=== PATIENT | male | born 1985 | race American Indian/Alaskan Native ===

== ENCOUNTER 2023-06-14 21:59 | Emergency (ER) | payer MEDICAID, SELFPAY ==
--- NOTE | 2023-06-14 22:00 | DI.RAD.S_ITS ---
PROCEDURE: XR CHEST 1V INDICATIONS: dyspnea, reports recent PNA TECHNIQUE: One view of the chest was acquired. COMPARISON: None. FINDINGS: Surgical changes and devices: A small hyperdensity projects over the right upper chest, location indeterminate on single view. Lungs and pleura: No dense consolidation. No pleural effusions. Mediastinum: Normal heart size Bones and chest wall: Unremarkable IMPRESSION: Single view radiograph. No acute abnormality. Metallic density projects over the right upper chest, location indeterminate. Dictated by: Liam Goode M.D. on 06/14/2023 at 22:10 Approved by: Liam Goode M.D. on 06/14/2023 at 22:11
--- NOTE | 2023-06-14 22:00 | ED.SOB ---
HPI - SOB/Dyspnea General Chief Complaint: Shortness of Breath/Dyspnea Stated Complaint: PEPE Time Seen by Provider: 06/14/23 21:59 History of Present Illness HPI Narrative: 38-year-old male with history of asthma presents by EMS for shortness of breath. Patient states that he was walking up a hill when he felt winded and short of breath. He lost his rescue inhaler and felt like he could not breathe we called 911. EMS reports that when they arrived the patient's room oxygen saturations were in the low 90s. He was given a DuoNeb EN route and transported to the emergency department. By the time of arrival to the emergency department the patient reported feeling back to baseline. He reports that several weeks ago he was diagnosed with pneumonia, but completed treatment in has been feeling well up until this evening. He lost his inhaler and requested a refill be sent to a local pharmacy as he will be staying here for the next week. He declines additional nebulized treatments at this time. Related Data Previous Rx's Medication Instructions Recorded albuterol sulfate 90 mcg/actuation 2 puff inhalation QID PRN 06/14/23 aerosol inhaler shortness of breath or wheezing #8.5 grams Review of Systems Review of Systems Narrative: Negative except as noted above Patient History Social History Smoking Status: Current every day smoker Exam Initial Vital Signs Initial Vital Signs: Vital Signs Temperature 98.1 F 06/14/23 22:05 Pulse Rate 89 06/14/23 22:05 Respiratory Rate 20 06/14/23 22:05 Blood Pressure 125/92 H 06/14/23 22:05 Pulse Oximetry 99 06/14/23 22:05 Oxygen Delivery Method Room Air 06/14/23 22:05 Const: Awake, alert, no acute distress, nontoxic appearing Cardiac: regular rate, regular rhythm RESP: unlabored, clear bilaterally, no wheezing GI: Atraumatic, soft, nontender, nondistended, no rebound, no guarding MSK: Atraumatic, full range of motion, pulses equal Skin: Warm, Dry, intact, no rashes Neuro: AO x3, CN II-XII grossly intact, moves all extremities Psych: affect normal, mood normal, not suicidal, not homicidal Course Course Course Narrative: Well-appearing patient presenting for shortness of breath similar to previous asthma exacerbations. He received a nebulizer treatment EN route by EMS and reports feeling back to his baseline. He declines additional testing or treatment. His lungs are clear to auscultation bilaterally, he is saturating well on room air, he is speaking complete sentences without dyspnea. Refill of albuterol inhaler sent to patient's pharmacy of choice. Orders Ordered: ED Orders 06/14/23 22:00 Chest [XR chest 1V] Stat 06/14/23 22:09 Consult to [employer] - Night Clerk Stat Vital Signs Vital signs: Vital Signs - 8 hr 06/14/23 22:05 06/14/23 22:15 06/14/23 22:16 Temperature 98.1 F Pulse Rate 89 79 Respiratory Rate 20 Blood Pressure 125/92 H 134/85 Pulse Oximetry 99 99 Oxygen Delivery Method Room Air 06/14/23 22:16 Temperature Pulse Rate 77 Respiratory Rate Blood Pressure Pulse Oximetry 99 Oxygen Delivery Method MDM - SOB/Dyspnea Differential Diagnosis Differential diagnosis: Likely acute exacerbation of chronic obstructive airways disease, community acquired pneumonia and asthma with exacerbation Discharge Plan Departure Patient Disposition: Home Clinical Impression: Asthma with exacerbation Qualifiers: Asthma severity: mild Asthma persistence: intermittent Qualified Code(s): J45.21 - Mild intermittent asthma with (acute) exacerbation Instructions: DI for Asthma -- Adult Prescriptions: New albuterol sulfate 90 mcg/actuation HFA aerosol inhaler 2 puff inhalation QID PRN (Reason: shortness of breath or wheezing) Qty: 8.5 0RF Stand Alone Forms: Patient Portal/API
[2023-06-14 22:05] VITALS: BP 125/92; PULSE 89; RESP 20; TEMP 36.7; O2SAT 99; BMI 25.1
[2023-06-14 22:15] VITALS: PULSE 79; O2SAT 99
[2023-06-14 22:16] VITALS: BP 134/85; PULSE 77; O2SAT 99
== END 2023-06-14 22:35 | disposition home or self-care (01) ==
LOC: ED 23:03
PROVIDERS: Emergency Provider Emergency Medicine
DX: J45.21 Mild intermittent asthma with (acute) exacerbation (principal); F17.200 Nicotine dependence, unspecified, uncomplicated
CPT/HCPCS: 71045; 99283